=== PATIENT | male | born 1955 | race Two or more races ===

== ENCOUNTER 2024-09-16 14:26 | Emergency (ER) | payer OTHER, BC ==
[~2024-09-16] VITALS: Ht 180.3 cm; Wt 107.5 kg
[2024-09-16] MEDS ORDERED: CARVEDILOL6.25 MG (15:25)
[2024-09-16 15:26] VITALS: BP 170/90; O2SAT 96
[2024-09-16] MEDS ORDERED: IBUprofen 400 MG TABLET PO STA (17:09)
== END 2024-09-16 18:14 | disposition home or self-care (01) ==
LOC: ER 14:29
DX: S80.02XA Contusion of left knee, initial encounter (principal); X83.8XXA Intentional self-harm by other specified means, initial encounter; Y93.89 Activity, other specified; Y92.89 Other specified places as the place of occurrence of the external cause; Y99.8 Other external cause status